=== PATIENT | female | born 1955 | race Caucasian/White ===

== ENCOUNTER 2018-07-13 15:50 | Inpatient (IN) | payer OTHER ==
[~2018-07-13] VITALS: Ht 160 cm; Wt 96.3 kg
[2018-07-13 15:55] VITALS: Ht 160 cm; Wt 96.3 kg
[2018-07-13 16:21] LABS: BASOPHIL % 0.5 % (0-2); PLATELET COUNT 233 x10^3mcL (130-400); RED CELL DISTRIBUTION WIDTH 12.8 % (11.5-14.5)
[2018-07-13 16:29] LABS: CALCIUM 8.8 mg/dL (8.5-10.1); CARBON DIOXIDE 30.4 mmol/L (21-32); CHLORIDE SERUM 102 mmol/L (98-107); CREATININE SERUM 0.7 mg/dL (0.6-1.0); GFR1 > 60 mL/min; GLUCOSE SERUM 207 mg/dL (74-106); SODIUM SERUM 139 mmol/L (136-145)
[2018-07-13 16:34] LABS: ALBUMIN 3.7 g/dL (3.4-5.0); ALKALINE PHOSPHATASE 88 U/L (46-116); ALT/SGPT 24 U/L (14-59); AST/SGOT 18 U/L (15-37); BILIRUBIN TOTAL 0.2 mg/dL (0.20-1.00); CHOLESTEROL 154 mg/dL (<200); CHOLESTEROL/HDL RATIO 3.3; HDL CHOLESTEROL 47 mg/dL (40-60); LIPASE 123 IU/L (73-393); TOTAL PROTEIN, SERUM 7.6 g/dL (6.4-8.2)
[2018-07-13 16:44] LABS: FREE T4 0.9 ng/dL (0.76-1.46); FREE THYROXINE INDEX 2.5 ug/dL (1.4-4.5); T4(THYROXINE) 8.2 ug/dL (4.7-13.3)
[2018-07-13 16:46] LABS: TRIGLYCERIDES 426 mg/dL (<150)
[2018-07-13 16:48] LABS: T3 TOTAL 1.19 ng/mL
[2018-07-13 18:08] LABS: UA SPECIFIC GRAVITY <=1.005 (1.005-1.035); microscopic required? YES; urine erythrocyte TRACE (NEGATIVE)
[2018-07-13] MEDS ORDERED: NOVI SQ (18:09)
[2018-07-13] MEDS ORDERED: METFORMIN HCL500 MG PO (18:10)
[2018-07-13] MEDS ORDERED: CLOPIDOGREL75 M1 PO (18:10)
[2018-07-13] MEDS ORDERED: LIPI20 PO (18:10)
[2018-07-13] MEDS ORDERED: LEVEMIR100 U/M1 SQ (18:10)
[2018-07-13] MEDS ORDERED: NOR5 PO (18:10)
[2018-07-13] MEDS ORDERED: METOPROLOL SUCC50 M2 PO (18:10)
[2018-07-13 19:42] VITALS: BP 157/82
[2018-07-14 05:52] VITALS: BP 151/68
[2018-07-14 06:27] LABS: BASOPHIL % 0.5 % (0-2); PLATELET COUNT 203 x10^3mcL (130-400); RED CELL DISTRIBUTION WIDTH 12.9 % (11.5-14.5)
[2018-07-14 06:51] LABS: ALBUMIN 3.5 g/dL (3.4-5.0); ALKALINE PHOSPHATASE 79 U/L (46-116); ALT/SGPT 17 U/L (14-59); AST/SGOT 21 U/L (15-37); BILIRUBIN TOTAL 0.34 mg/dL (0.20-1.00); CALCIUM 8.7 mg/dL (8.5-10.1); CARBON DIOXIDE 27.2 mmol/L (21-32); CHLORIDE SERUM 106 mmol/L (98-107); CHOLESTEROL 148 mg/dL (<200); CREATININE SERUM 0.5 mg/dL (0.6-1.0); GFR1 > 60 mL/min; GLUCOSE SERUM 233 mg/dL (74-106); HDL CHOLESTEROL 50 mg/dL (40-60); POTASSIUM SERUM 4.1 mmol/L (3.5-5.1); SODIUM SERUM 143 mmol/L (136-145); TOTAL PROTEIN, SERUM 7.2 g/dL (6.4-8.2)
[2018-07-14 06:56] LABS: TRIGLYCERIDES 232 mg/dL (<150)
[2018-07-14 08:09] VITALS: BP 170/93
[2018-07-14] MEDS ORDERED: ASPIR 8181 MG PO (09:31)
[2018-07-14] MEDS ORDERED: GLUCOTROL10 MG PO (09:32)
[2018-07-14] MEDS ORDERED: GOOD SENSE OMEP20 MG PO (09:33)
[2018-07-14 12:13] VITALS: BP 159/92
[2018-07-14 12:19] VITALS: BP 159/92
== END 2018-07-14 13:37 | disposition home or self-care (01) | DRG 69 ==
LOC: ED 15:50 → DU 18:08
PROVIDERS: Internal Medicine; Specialist; ADMIT Internal Medicine
DX: G45.9 Transient cerebral ischemic attack, unspecified (principal); I25.10 Atherosclerotic heart disease of native coronary artery without angina pectoris; I10 Essential (primary) hypertension; E66.3 Overweight; K52.9 Noninfective gastroenteritis and colitis, unspecified; E03.9 Hypothyroidism, unspecified; E78.5 Hyperlipidemia, unspecified; E78.1 Pure hyperglyceridemia; E11.9 Type 2 diabetes mellitus without complications; Z79.82 Long term (current) use of aspirin; Z95.5 Presence of coronary angioplasty implant and graft; Z90.49 Acquired absence of other specified parts of digestive tract; Z90.710 Acquired absence of both cervix and uterus; Z88.0 Allergy status to penicillin
CPT/HCPCS: 82962; 83880; 84439; J2405; J7030; J8597; Q0092; Q9967

== ENCOUNTER 2018-07-15 09:11 | Emergency (ER) | payer BC ==
[~2018-07-15] VITALS: Ht 160 cm; Wt 93.9 kg
[~2018-07-15 09:11] MED LIST: ASPIR 8181 MG PO; CLOPIDOGREL75 M1 PO; GLUCOTROL10 MG PO; GOOD SENSE OMEP20 MG PO; LEVEMIR100 U/M1 SQ; LIPI20 PO; METFORMIN HCL500 MG PO; METOPROLOL SUCC50 M2 PO; NOR5 PO; NOVI SQ
[2018-07-15 09:18] VITALS: Ht 160 cm; Wt 93.9 kg
[2018-07-15 10:46] VITALS: BP 160/86
== END 2018-07-15 10:46 | disposition home or self-care (01) ==
LOC: ED 09:11
DX: G51.0 Bell's palsy (principal); E11.65 Type 2 diabetes mellitus with hyperglycemia; I10 Essential (primary) hypertension; Z88.0 Allergy status to penicillin
CPT/HCPCS: 82962

== ENCOUNTER 2018-08-31 13:26 | Emergency (ER) | payer BC ==
[~2018-08-31] VITALS: Ht 160 cm; Wt 95.3 kg
[2018-08-31 13:50] VITALS: Ht 160 cm; Wt 95.3 kg
[2018-08-31 15:05] LABS: BASOPHIL % 0.5 % (0-2); PLATELET COUNT 226 x10^3mcL (130-400); RED CELL DISTRIBUTION WIDTH 13.1 % (11.5-14.5)
[2018-08-31 15:19] LABS: CALCIUM 8.5 mg/dL (8.5-10.1); CHLORIDE SERUM 103 mmol/L (98-107); CREATININE SERUM 0.7 mg/dL (0.6-1.0); GFR1 > 60 mL/min; GLUCOSE SERUM 182 mg/dL (74-106); POTASSIUM SERUM 3.7 mmol/L (3.5-5.1); SODIUM SERUM 141 mmol/L (136-145)
[2018-08-31 15:31] LABS: ALBUMIN 3.4 g/dL (3.4-5.0); ALKALINE PHOSPHATASE 84 U/L (46-116); ALT/SGPT 28 U/L (14-59); AMYLASE 70 U/L (25-115); AST/SGOT 18 U/L (15-37); BILIRUBIN TOTAL 0.2 mg/dL (0.20-1.00); CHOLESTEROL 135 mg/dL (<200); HDL CHOLESTEROL 46 mg/dL (40-60); LIPASE 463 IU/L (73-393); T4(THYROXINE) 7.6 ug/dL (4.7-13.3)
[2018-08-31 16:48] LABS: UA SPECIFIC GRAVITY 1.015 (1.005-1.035)
[2018-08-31 16:49] LABS: microscopic required? YES; urine erythrocyte TRACE (NEGATIVE)
[2018-08-31 16:59] LABS: AMPHETAMINE QUAL UR NONE DETECTED (See below)
[2018-08-31] MEDS ORDERED: METOPROLOL SUCC50 M2 PO (18:26)
[2018-08-31] MEDS ORDERED: NOR10 PO (18:27)
[2018-08-31] MEDS ORDERED: HUMI SC (18:29)
[2018-08-31] MEDS ORDERED: BASAGLAR K100 UNIT/1 SQ (18:30)
[2018-08-31 19:27] VITALS: BP 155/84
== END 2018-08-31 19:27 | disposition left against medical advice (07) ==
LOC: ED 13:26
PROVIDERS: Emergency Medicine
DX: I25.10 Atherosclerotic heart disease of native coronary artery without angina pectoris (principal); I71.00 Dissection of unspecified site of aorta; E78.41 Elevated Lipoprotein(a); E11.65 Type 2 diabetes mellitus with hyperglycemia; I10 Essential (primary) hypertension; E78.00 Pure hypercholesterolemia, unspecified; G51.0 Bell's palsy; E66.9 Obesity, unspecified; Z90.49 Acquired absence of other specified parts of digestive tract; Z88.0 Allergy status to penicillin
CPT/HCPCS: 83880; J7030; Q0092; Q9967